=== PATIENT | female | born 1970 | race Caucasian/White ===

== ENCOUNTER 2017-03-06 16:28 | Emergency (ER) | payer BC ==
[~2017-03-06] VITALS: Wt 80.0 kg
[~2017-03-06 16:28] MED LIST: ACET325T33 PO; AZIT250T94 PO
[2017-03-06] MEDS ORDERED: morphine 4 MG/ML VIAL IV STA (17:09)
[2017-03-06] MEDS ORDERED: ONDANSETRON 4 MG INJ IV STA (17:09)
[2017-03-06] MEDS ORDERED: SOD CHLORIDE 0.9% 1,000 ML IV STA (17:09)
--- NOTE | 2017-03-06 17:57 | ERD ---
ER Documentation Chief Complaint Date/Time DATE: 03/06/17 TIME: 17:55 Chief Complaint LEFT LOWER ABD PAIN AFTER PALPATED BY MD, NO BLEEDING. NAUSEA NO VOMITNG HPI Patient is a 46-year-old female who presents to the ED with sudden onset of abdominal and pelvic pain. She states that she was at her primary care provider for a checkup and as he palpated her abdomen she developed pain suddenly. She states that the pain is a 10 out of 10 and it has been constant since her doctor's visit a few hours ago. She states that she has never had this pain in the past. ROS All systems reviewed and are negative except as per history of present illness. Medications Home Meds Active Scripts Acetaminophen* (Tylophen*) 500 Mg Capsule, 1 CAP PO Q6H Y for PAIN AND OR ELEVATED TEMP, #20 CAP Prov:RIVERA MARTÍNEZ PA-C 03/06/17 Ondansetron (Ondansetron Odt) 4 Mg Tab.rapdis, 4 MG PO Q6H Y for NAUSEA AND/OR VOMITING, #10 TAB Prov:RIVERA MARTÍNEZ PA-C 03/06/17 Acetaminophen* (Tylenol*) 325 Mg Tablet, 650 MG PO Q6H Y for PAIN AND OR ELEVATED TEMP, #30 TAB Prov:MONIE MERCEDES NP 08/12/15 Azithromycin* (Zithromax*) 250 Mg Tablet, 250 MG PO .ZPACK DIRECTED, #6 TAB TAKE 500 MG (2 TABS) THE FIRST DAY THEN 250 MG (1 TAB) DAYS 2-5 Prov:MONIE MERCEDES NP 08/12/15 Allergies Allergies: Uncoded Allergies: AMOXICILLINS (Allergy, Unknown, 03/06/17) PMhx/Soc History of Surgery: Yes (HERNIA REPAIR, ABLASION, TUBAL LIGATION) Anesthesia Reaction: No Hx Respiratory Disorders: Yes (asthma) Hx Cardiac Disorders: No Hx Psychiatric Problems: No Hx Miscellaneous Medical Probl: No Hx Alcohol Use: Yes Hx Substance Use: No Hx Tobacco Use: No Smoking Status: Never smoker FmHx Family History: No coronary disease, No diabetes, No other Physical Exam Vitals Vital Signs Date Time Temp Pulse Resp B/P Pulse Ox O2 Delivery O2 Flow Rate FiO2 03/06/17 16:34 99.5 88 20 171/81 98 Physical Exam GENERAL: Well-developed, well-nourished female. Appears in mild distress. HEAD: Normocephalic, atraumatic. EYES: Pupils are equally reactive bilaterally. EOMs grossly intact. No conjunctival erythema. ENT: Moist mucous membranes. No uvula deviation. No kissing tonsils. No exudates. NECK: Supple. No lymphadenopathy or thyromegaly. No meningismus. negative kernig. negative brudinski. LUNG: Clear to auscultation bilaterally. No rhonchi, wheezing, rales or coarse breath sounds. HEART: Regular rate and rhythm. No murmurs, rubs or gallops. ABDOMEN: No scars, ecchymosis or rashes noted. Soft, nontender, and nondistended. Positive bowel sounds in all four quadrants. No rebound tenderness , no guarding. (-) McBurneys point tenderness. No CVA tenderness. Tenderness in the pelvic region bilaterally. Left lower quadrant tenderness. Right upper quadrant tenderness. Extremities: Equal pulses bilaterally. No peripheral clubbing, cyanosis or edema. No unilateral leg swelling. NEUROLOGIC: Alert and oriented. Moving all four extremities. 5/5 strength in all extremities. Normal speech. Steady gait. SKIN: Normal color. Warm and dry. No rashes or lesions. Capillary refill < 2 seconds Result Diagram: 03/06/17181403/06/175 Results 24 hrs Laboratory Tests Test 03/06/17 18:15 White Blood Count 8.010^3/ul Red Blood Count 4.7610^6/ul Hemoglobin 14.2g/dl Hematocrit 42.0% Mean Corpuscular Volume 88.2fl Mean Corpuscular Hemoglobin 29.8pg Mean Corpuscular Hemoglobin Concent 33.8g/dl Red Cell Distribution Width 11.9% Platelet Count 09131^3/UL Mean Platelet Volume 10.7fl Neutrophils % 37.5% Lymphocytes % 49.1% Monocytes % 6.9% Eosinophils % 5.8% Basophils % 0.6% Nucleated Red Blood Cells % 0.0/100WBC Neutrophils # 3.010^3/ul Lymphocytes # 3.910^3/ul Monocytes # 0.610^3/ul Eosinophils # 0.510^3/ul Basophils # 0.110^3/ul Nucleated Red Blood Cells # 0.010^3/ul Urine Color LT. YELLOW Urine Clarity CLEAR Urine pH 6.5 Urine Specific Leander <=1.005 Urine Ketones NEGATIVE Urine Nitrite NEGATIVE Urine Bilirubin NEGATIVE Urine Urobilinogen 0.2 E.U./dL Urine Leukocyte Esterase NEGATIVE Urine Microscopic RBC 0-2/HPF Urine Microscopic WBC 0-2/HPF Urine Squamous Epithelial Cells RARE Urine Hemoglobin TRACE Urine Glucose NEGATIVE% Urine Total Protein NEGATIVE Sodium Level 139mmol/L Potassium Level 3.5mmol/L Chloride Level 101mmol/L Carbon Dioxide Level 28mmol/L Anion Gap 14 Blood Urea Nitrogen 14mg/dl Creatinine 0.92mg/dl Glucose Level 93mg/dl Calcium Level 9.2mg/dl Total Bilirubin 0.6mg/dl Direct Bilirubin 0.00mg/dl Indirect Bilirubin 0.6mg/dl Aspartate Amino Transf (AST/SGOT) 22IU/L Alanine Aminotransferase (ALT/SGPT) 26IU/L Alkaline Phosphatase 66IU/L Total Protein 7.8g/dl Albumin 4.2g/dl Globulin 3.60g/dl Albumin/Globulin Ratio 1.16 Lipase 44U/L Current Medications Medications (Trade) Dose Ordered Sig/Samantha Route PRN Reason Start Time Stop Time Status Last Admin Dose Admin Sodium Chloride (NS) 1,000 ml @ 1,000 mls/hr Q1H STAT IV 03/06/17 17:09 03/06/17 18:08 DC 03/06/17 18:02 Morphine Sulfate (morphine) 4 mg ONCE STAT IV 03/06/17 17:09 03/06/17 17:10 DC 03/06/17 18:02 Ondansetron HCl (Zofran Inj) 4 mg ONCE STAT IV 03/06/17 17:09 03/06/17 17:10 DC 03/06/17 18:02 Procedures/MDM ER COURSE: I kept the patient and/or family informed of laboratory and diagnostic imaging results throughout the emergency room course. EKG, MONITORS, & DIAGNOSTIC IMAGING: [place] [id number] Radiology Main Line: [phone] DIAGNOSTIC IMAGING REPORT Patient: JAMAAL DANIELS : 1970 Age: 46 Sex: F MR #: [id number] DOS: 03/06/17 7001 Ordering MD: RIVERA MARTÍNEZ PA-C Location: [facility] Room/Bed: PROCEDURE: CT Abdomen and Pelvis without contrast. CLINICAL INDICATION: Abdominal pain. TECHNIQUE: CT scan of the abdomen and pelvis without contrast was performed on a multidetector high-resolution CT scanner. The patient was scanned without intravenous contrast. Coronal and sagittal reformatted images were obtained from the axial source images. Images were reviewed on a high-resolution PACS workstation. One or more of the following dose reduction techniques were used: Automated exposure control, adjustment of the mA and/or kV according to patient size, use of iterative reconstruction technique. The total exam CTDI equals 15.91 mGy and the total exam DLP equals 922.61 mGy-cm. COMPARISON: None. FINDINGS: CT abdomen: The lung bases are clear. The heart size is normal, without pericardial thickening or effusion. The liver is normal in size and density without focal mass or intrahepatic biliary dilatation. The spleen is normal in size and homogeneous in density. The stomach is grossly unremarkable. The pancreas as visualized is normal. The gallbladder and biliary tree are unremarkable and there is no evidence for biliary dilatation. The adrenal glands are symmetric and normal. The kidneys are symmetrically unremarkable as well. No renal calculus or obstructive uropathy or mass lesion is seen. The aorta is of normal caliber. There is no retroperitoneal lymphadenopathy. The raheem hepatis region is clear. The small bowel and mesentery, as visualized , are unremarkable. CT pelvis: The small bowel loops situated within the pelvis are unremarkable. The pelvic organs are normal. The pelvic sidewalls and inguinal regions are clear. The sigmoid colon and rectum are unremarkable. The appendix is normal. No mass, lymphadenopathy, or free fluid is seen. No acute inflammation is seen. The surrounding osseous structures are unremarkable. No osteolytic or osteoblastic lesion is detected. IMPRESSION: No abdominal or pelvic acute inflammatory process, mass, or lymphadenopathy. RPTAT: HRAA .Feliciano Reyes MD, Date Time Electronically viewed and signed by .Feliciano Reyes MD, MD on 03/06/2017 19:21 .A/ CC: RIVERA MARTÍNEZ PA-C [place] [id number] Radiology Main Line: [phone] DIAGNOSTIC IMAGING REPORT Patient: JAMAAL DANIELS : 1970 Age: 46 Sex: F MR #: [id number] DOS: 03/06/17 1709 Ordering MD: RIVERA MARTÍNEZ PA-C Location: [facility] Room/Bed: PROCEDURE: US Pelvis. CLINICAL INDICATION: Pelvic pain TECHNIQUE: Multiple sonographic images of the pelvis were obtained utilizing a transabdominal and endovaginal technique. The images were reviewed on a PACS workstation. COMPARISON: None available FINDINGS: Uterus: In the posterior mid uterine corpus is a rounded, relatively hypoechoic , intramural nodule measuring 1.1 x 1 x 0.9 cm consistent with a solitary leiomyoma. Uterine contour and size are normal. Overall size is estimated at 7.5 x 5.8 x 5.1 cm. Cervix: No abnormalities of significance are seen. Endometrium: Normal in thickness; 3.3 mm. Right ovary / adnexa: The ovary is not visualized. There is no evidence of adnexal mass Left ovary/adnexa: Normal in size estimated at 1.9 x 1.1 x 1.1 cm. No evidence for solid masses, normal blood flow on Doppler interrogation. Cul-de-sac: No evidence of free fluid. RPTAT:HJJR IMPRESSION: 1. Solitary posterior intramural leiomyoma of 1.1 cm. 2. Unremarkable left ovary, the right ovary is not visualized. Physician Kizzy Date Time Electronically viewed and signed by Physician Kizzy on 03/06/2017 18:44 JR/ CC: RIVERA MARTÍNEZ PA-C MEDICATIONS: IV fluids, Zofran, morphine. Tolerated well with no adverse reaction. Stated improvement in symptoms. LAB INTERPRETATION: CBC showed no evidence of systemic infection or severe anemia. CMP showed no evidence of electrolyte abnormalities, severe acidosis, alkalosis, renal failure , or liver disease. Lipase showed no evidence of acute pancreatitis. UA showed no evidence of leukocytes, nitrites or hematuria. Urine test was negative. MEDICAL DECISION MAKING: This is a 46-year-old who presents with abdominal pain 2 hours. Vital signs were reviewed. Patient is afebrile. Patient is not hypoxic. Patient's abdominal pain is of unknown etiology. Her ultrasound is read by radiologist shows a leiomyoma. Low suspicion for ovarian torsion, PID, tuboovarian abscess , ectopic , bowel obstruction, pyelonephritis, UTI, appendicitis, cervicitis, septic , molar , HELLP syndrome, preeclampsia, eclampsia, placenta previa, placenta abruptia. Her CAT scan is read by radiologist is unremarkable. Low suspicion for ACS, AAA, perforated ulcer, bowel obstruction, cholecystitis, choledocholithiasis, cholangitis, pancreatitis , hepatic abscess, appendicitis, diverticulitis, gastroenteritis, hepatitis, peptic ulcer disease, HELLP syndrome. I reevaluated patient after medication and she stated improvement in symptoms per Patient does have slightly elevated blood pressure today. She is being followed by her primary care regarding her blood pressure. I have low suspicion for hypertensive urgency, emergency or endorgan damage. Low suspicion for intracranial hemorrhage, meningitis, intracranial mass, concussion , temporal arteritis, stroke, elevated intracranial pressure, seizure. I do not think patient needs to be admitted at this time. Patient is stable. DISCHARGE: At this time, patient is stable for discharge and outpatient management with no new complaints during the ER course. Patient was sent home with Tylenol for pain and Zofran for nausea and to follow-up with primary care provider this week. All copies of laboratory studies and imaging studies were given to patient.. Patient will be discharged home with instructions to recheck for new or worsening symptoms such as fever, nausea, weakness, LOC and to follow up with primary care in the next 1-2 days. Patient was advised to return to the ER for any new or worsening symptoms. Plan was discussed and patient and/or family understands and agrees. Home instructions were given. Departure Diagnosis: Primary Impression: Abdominal pain Abdominal location: generalized Qualified Code: R10.84 - Generalized abdominal pain Condition: Stable RIVERA MARTÍNEZ PA-C March 06, 2017 17:57
[2017-03-06 18:19] LABS: ADD SCAN DIFF NO
[2017-03-06 18:20] LABS: BASOPHIL # 0.1 10^3/ul (0.0-0.1); BASOPHILS % 0.6 % (0.0-2.0); EOSINOPHILS # 0.5 10^3/ul (0.0-0.5); EOSINOPHILS % 5.8 % (0.0-7.0); HEMOGLOBIN 14.2 g/dl (12.0-16.0); LYMPHOCYTES # 3.9 10^3/ul (0.8-2.9); LYMPHOCYTES % 49.1 % (15.0-51.0); MEAN CORPUSCULAR HEMOGLOBIN 29.8 pg (29.0-33.0); MEAN CORPUSCULAR HGB CONC 33.8 g/dl (32.0-37.0); MEAN CORPUSCULAR VOLUME 88.2 fl (82.0-101.0); MEAN PLATELET VOLUME 10.7 fl (7.4-10.4); MONOCYTE # 0.6 10^3/ul (0.3-0.9); MONOCYTES % 6.9 % (0.0-11.0); NEUTROPHILS % 37.5 % (39.0-77.0); PLATELET COUNT 293 10^3/UL (140-415); RED BLOOD COUNT 4.76 10^6/ul (4.20-5.40); RED CELL DISTRIBUTION WIDTH 11.9 % (11.5-14.5)
[2017-03-06 18:34] LABS: ALBUMIN 4.2 g/dl (3.3-4.9)
[2017-03-06 18:35] LABS: POTASSIUM 3.5 mmol/L (3.5-5.1)
[2017-03-06 18:37] LABS: ALBUMIN/GLOBULIN RATIO 1.16; BILIRUBIN,INDIRECT 0.6 mg/dl (0-1.1); BILIRUBIN,TOTAL 0.6 mg/dl (0.2-1.3); CALCIUM 9.2 mg/dl (8.4-10.2); CREATININE 0.92 mg/dl (0.44-1.00); TOTAL PROTEIN 7.8 g/dl (6.1-8.1)
--- NOTE | 2017-03-06 18:45 | RADRPT ---
PROCEDURE: US Pelvis. CLINICAL INDICATION: Pelvic pain TECHNIQUE: Multiple sonographic images of the pelvis were obtained utilizing a transabdominal and endovaginal technique. The images were reviewed on a PACS workstation. COMPARISON: None available FINDINGS: Uterus: In the posterior mid uterine corpus is a rounded, relatively hypoechoic, intramural nodule m easuring 1.1 x 1 x 0.9 cm consistent with a solitary leiomyoma. Uterine contour and size are normal . Overall size is estimated at 7.5 x 5.8 x 5.1 cm. Cervix: No abnormalities of significance are seen. Endometrium: Normal in thickness; 3.3 mm. Right ovary / adnexa: The ovary is not visualized. There is no evidence of adnexal mass Left ovary/adnexa: Normal in size estimated at 1.9 x 1.1 x 1.1 cm. No evidence for solid masses, no rmal blood flow on Doppler interrogation. Cul-de-sac: No evidence of free fluid. RPTAT:HJJR IMPRESSION: 1. Solitary posterior intramural leiomyoma of 1.1 cm. 2. Unremarkable left ovary, the right ovary is not visualized. Physician Kizzy Date Time Electronically viewed and signed by Physician Kizzy on 03/06/2017 18:44 /
[2017-03-06 19:17] LABS: ADD UMIC YES; URINE BILIRUBIN (Dip) NEGATIVE (NEGATIVE); URINE BLOOD (Dip) TRACE (NEGATIVE); URINE COLOR LT. YELLOW (YELLOW); URINE GLUCOSE (Dip) NEGATIVE (NEGATIVE); URINE KETONES (Dip) NEGATIVE (NEGATIVE); URINE LEUKOCYTE ESTERASE (Dip) NEGATIVE (NEGATIVE); URINE NITRITE (Dip) NEGATIVE (NEGATIVE); URINE TOTAL PROTEIN (Dip) NEGATIVE (NEGATIVE); URINE UROBILINOGEN (Dip) 0.2 E.U./dL (0.1-1.0)
--- NOTE | 2017-03-06 19:21 | RADRPT ---
PROCEDURE: CT Abdomen and Pelvis without contrast. CLINICAL INDICATION: Abdominal pain. TECHNIQUE: CT scan of the abdomen and pelvis without contrast was performed on a multidetector hig h-resolution CT scanner. The patient was scanned without intravenous contrast. Coronal and sagittal reformatted images were obtained from the axial source images. Images were reviewed on a high-resol Closely PACS workstation. One or more of the following dose reduction techniques were used: Automated exposure control, adjustment of the mA and/or kV according to patient size, use of iterative recon struction technique. The total exam CTDI equals 15.91 mGy and the total exam DLP equals 922.61 mGy- cm. COMPARISON: None. FINDINGS: CT abdomen: The lung bases are clear. The heart size is normal, without pericardial thickening or effusion. The liver is normal in size and density without focal mass or intrahepatic biliary dilatation. The spleen is normal in size and homogeneous in density. The stomach is grossly unremarkable. The panc reas as visualized is normal. The gallbladder and biliary tree are unremarkable and there is no cally dence for biliary dilatation. The adrenal glands are symmetric and normal. The kidneys are symmetr ically unremarkable as well. No renal calculus or obstructive uropathy or mass lesion is seen. The aorta is of normal caliber. There is no retroperitoneal lymphadenopathy. The raheem hepatis reg ion is clear. The small bowel and mesentery, as visualized, are unremarkable. CT pelvis: The small bowel loops situated within the pelvis are unremarkable. The pelvic organs are normal. T he pelvic sidewalls and inguinal regions are clear. The sigmoid colon and rectum are unremarkable. The appendix is normal. No mass, lymphadenopathy, or free fluid is seen. No acute inflammation is s een. The surrounding osseous structures are unremarkable. No osteolytic or osteoblastic lesion is detec myranda. IMPRESSION: No abdominal or pelvic acute inflammatory process, mass, or lymphadenopathy. RPTAT: HRAA .Feliciano Reyes MD, Date Time Electronically viewed and signed by .Feliciano Reyes MD, MD on 03/06/2017 19:21 .A/
[2017-03-06 19:25] LABS: SQUAMOUS EPITHELIAL CELL,UR RARE; URINE RBCS 0-2 /HPF (0)
[2017-03-06] MEDS ORDERED: ONDA4TAB14 PO (19:26)
[2017-03-06] MEDS ORDERED: ACET500C5 PO (19:27)
[2017-03-06 19:59] VITALS: BP 138/69; PULSE 77; RESP 16; TEMP 98.2
== END 2017-03-06 20:00 | disposition home or self-care (01) ==
LOC: FTE 16:28
DX: R10.84 Generalized abdominal pain (principal); R10.2 Pelvic and perineal pain; R11.0 Nausea; J45.909 Unspecified asthma, uncomplicated
CPT/HCPCS: 74176; 76830; 76856; 80053; 81001; 83690; 85025; J2270; J2405; J7030; 36415; 81003; 96374; 96375

== ENCOUNTER 2018-01-25 10:01 | Emergency (ER) | END 2018-01-25 11:33 | disposition home or self-care (01) ==

== ENCOUNTER 2018-05-16 19:17 | Emergency (ER) | END 2018-05-16 21:31 | disposition home or self-care (01) ==